=== PATIENT | male | born 1985 | race Caucasian/White ===

== ENCOUNTER 2017-02-15 15:28 | Inpatient (IN) | payer BC, OTHER ==
[~2017-02-15] VITALS: Ht 182.9 cm; Wt 81.6 kg
[~2017-02-15 15:28] MED LIST: [UNRECOGNIZED DRUG - OTHER]
[2017-02-15] MEDS ORDERED: ONDANSETRON ODT 4 MG TAB.RAPDIS SL PRN (16:45)
[2017-02-15] MEDS ORDERED: ONDANSETRON 4 MG/2 ML VIAL IM PRN (16:45)
[2017-02-15] MEDS ORDERED: MAG HYDROX/AL HYDROX/SIMETH 30 ML LIQUID UDC PO PRN (16:45)
[2017-02-15] MEDS ORDERED: CLONIDINE HCL 0.1 MG TABLET PO PRN (16:45)
[2017-02-15] MEDS ORDERED: DICYCLOMINE HCL 20 MG TABLET PO PRN (16:45)
[2017-02-15] MEDS ORDERED: ACETAMINOPHEN 325 MG TABLET PO PRN (16:45)
[2017-02-15] MEDS ORDERED: LOPERAMIDE HCL 2 MG CAPSULE PO PRN ×2 (16:45)
[2017-02-15] MEDS ORDERED: MIRALAX 17 GM POWD.PACK PO PRN (16:45)
[2017-02-15] MEDS ORDERED: MAGNESIUM HYDROXIDE 30 ML LIQUID UDC PO PRN (16:45)
--- NOTE | 2017-02-15 16:50 | NUR ---
PRE ASSESSMENT: PT PRE ASSESSED IN INTAKE. HE DENIES ALLERGIES. HE DENIES SZ HX. BP 140/103 114 97.7 16 99%. HE STATES HE USES 1-2 GM HEROIN IV AND 1 GM COCAINE IV 2-3 X WEEKLY. HE SMOKES POT ON OCCASION AND TOOK 4 MG OF XANAX TODAY AND YESTERDAY ONLY TO ASSIST WITH WITHDRAWAL SYMPTOMS. HE SMOKES 1 PACK OF CIGARETTES. HE HAS MULTIPLE ABSCESSES ON BILAT ARMS AND LEGS. WILL ASSESS ON UNIT.
[2017-02-15] MEDS: NEOMY/BACITRAC/POLYMI OINT 28.35 GM TUBE TOP SCH (17:00)
[2017-02-15 17:01] VITALS: BP 140/103
[2017-02-15 17:24] LABS: BASOPHILS # (AUTO) 0.1 K/uL (0.0-8.0); BASOPHILS % (AUTO) 1.3 % (0.0-2.0); EOSINOPHILS # (AUTO) 0.1 K/uL (0.0-0.7); EOSINOPHILS % (AUTO) 0.8 % (0.0-7.0); HEMATOCRIT 44.5 % (40-50); HEMOGLOBIN 14.9 G/DL (14.0-18.0); LYMPHOCYTES # (AUTO) 0.9 K/UL (0.8-4.8); LYMPHOCYTES % (AUTO) 12.5 % (20.5-51.5); MEAN CORPUSCULAR HEMOGLOBIN 27.3 UUG (27.0-31.0); MEAN CORPUSCULAR HGB CONC 34 g/dL (32.0-37.0); MEAN CORPUSCULAR VOLUME 81.5 FL (82.0-92.0); MONOCYTES # (AUTO) 0.3 K/UL (0.1-1.30); MONOCYTES % (AUTO) 4.7 % (0.0-11.0); NEUTROPHILS # (AUTO) 5.8 K/UL (1.8-8.9); NEUTROPHILS % (AUTO) 80.7 % (38.5-71.5); PLATELET COUNT (AUTO) 275 K/UL (150-450); RED BLOOD CELL COUNT(AUTO) 5.46 MIL/UL (4.7-6.1); WHITE BLOOD COUNT (AUTO) 7.2 K/UL (4.0-11.2)
[2017-02-15 17:31] LABS: ALANINE AMINOTRANSFERASE 14 U/L (16-63); ALKALINE PHOSPHATASE 62 U/L (50-136); ASPARTATE AMINOTRANSFERASE 15 U/L (15-37); BILIRUBIN,TOTAL 0.4 mg/dL (0.2-1.0); CARBON DIOXIDE 24 mmol/L (21-32); CHLORIDE 106 mmol/L (98-107); GLUCOSE 138 mg/dL (74-106); POTASSIUM 3.6 mmol/L (3.5-5.1); TOTAL PROTEIN, SERUM 8.3 g/dL (6.4-8.2); UREA NITROGEN, BLOOD 5 mg/dL (7-18)
[2017-02-15 17:41] LABS: THYROID STIMULATING HORMONE 0.145 mIU/mL (0.358-3.740)
[2017-02-15 17:48] LABS: ETHANOL < 3 MG/DL (0-0)
[2017-02-15] MEDS: METHOCARBAMOL 750 MG TABLET PO PRN (17:50)
[2017-02-15] MEDS: BUPRENORPHINE HCL 2 MG TAB.SUBL SL PRN (17:50)
--- NOTE | 2017-02-15 18:08 | NUR ---
ADMISSION; PT IS A/O X 4 AND AMBULATORY. ADMITTED TO [facility] FOR OPIATE DEPENDENCE. HE USES 1-2 GMS HEROIN IV DAILY X 6 WEEKS. LAST USED 02/12/17. HE USES COCAINE IV 2-3 X WEEKLY X 6 WEEKS. LAST USED 02/11/17. HE SMOKES POT ON OCCASION BUT STATES JUST A JOINT HERE AND THERE. HE ALSO REPORTS HE TOOK 4 MG OF XANAX TODAY AND 4 MG PO YESTERDAY TO HELP HIM MANAGE S/S OF W/D. HE HAS MULTIPLE ABSCESSES ON LEFT ARM AND A FEW ON RIGHT ARM. HE HAS MULTIPLE ABSCESSES ON L LEG AND A COUPLE ON RT. HE HAS AN OPEN ABSCESS ON HIS THUMB. WILL ENDORSE PHOTOS TO BE TAKEN ON SURFACE SHIP USW SUPERVISOR. WOUND CONCRETING SUPERVISOR ASSESSED AND ORDERED ORAL ABT. THERAPY TO MANAGE ABSCESS. EDUCATED PT ON HAND HYGIENE AND IMPORTANCE OF NOT TOUCHING THEM. HE IS PALE AND HIS FACE IS GAUNT.HE APPEARS DISHEVELED AND POORLY KEMPT.DR CISSE ASSESSED PT AND ORDERED PRN SUBUTEX. PRN SUBUTEX GIVEN FOR COWS 12 AND PRN ROBAXIN GIVEN. HE REPORTS MUSCLE ACHES,CHILLS AND ANXIETY.ABT OINTMENT ORDERED BUT NOT AVAILABLE OF YET. PT DENIES HAVING A PCP. HE DENIES MEDICAL HX BUT DOES REPORT A HX OF ANXIETY AND DEPRESSION. PT STATES HE HAS STRUGGLED WITH ADDICTION FOR 10 YEARS AND HAS BEEN IN MULTIPLE TREATMENT CENTERS. HIS LAST TREATMENT CENTER WAS IN FEBRUARY 2016 AT [facility]. HE WAS ALSO AT [facility] IN [place] 3 YRS AGO. HE WAS ORIENTED TO STAFF AN UNIT. ENCOURAGED INCREASED FLUIDS. HE PROVIDED UDS. OFFERED SUPPORT. WILL CONTINUE TO PROVIDE SAFE AND SUPPORTIVE ENVIRONMENT.
[2017-02-15 18:20] LABS: *AMPHETAMINE, URINE NEGATIVE (NEGATIVE); *BARBITURATE, URINE NEGATIVE (NEGATIVE); *CANNABINOID, URINE POSITIVE (NEGATIVE); *COCCAINE, URINE POSITIVE (NEGATIVE); *OPIATE, URINE POSITIVE (NEGATIVE); *PHENCYCLIDINE SCREEN,URINE NEGATIVE (NEGATIVE)
--- NOTE | 2017-02-15 18:20 | NUR ---
COWS 5. COWS WENT FROM 12 TO 5. PRN SUBUTEX EFFECTIVE. PT STATES HE FEELS BETTER.
[2017-02-15] MEDS ORDERED: LORAZEPAM 1 MG TABLET PO PRN ×2 (18:30)
[2017-02-15] MEDS ORDERED: LORAZEPAM 2 MG/1 ML VIAL IM PRN (18:30)
[2017-02-15 20:00] VITALS: BP 109/62
--- NOTE | 2017-02-15 20:00 | NUR ---
Start of Shift Pt is a 31 year old male admitted for Opiate dependence, PRNs Subutex available for withdrawal s/s. Pt reported using Heroin IV 1-2gm/daily and Cocaine IV 1 g 2-3x weekly. NKA, regular diet and full code. Abscessed noted on bilateral and legs d/t heroin use, pictures taken placed in chart. During time of assessment, pt presents with anxiety, reports hot/cold chills throughout body, muscle aches, abdominal cramping, skin flushed, respirations even/unlabored, denies SOB/chest pain, denies SI/HI, bowel sounds active x4, abdomen soft. Safety measures in place, call light within reach, side rails up x2, bed locked and in low position. Will continue to monitor.
[2017-02-15] MEDS: LACTOBACILLUS RHAMNOSUS GG 1 EACH CAPSULE PO SCH (21:22)
[2017-02-15] MEDS: SULFAMETH/TRIMETH 800/160 MG TABLET PO SCH (21:22)
--- NOTE | 2017-02-15 21:51 | NUR ---
PRN Administration Pt reported feeling body/aches, chills throughout body, inability to sit still with abdominal cramping. Bentyl 20mg PRN and Clonidine 0.1mg PRN administered. Safety measures in place. Will continue to monitor.
[2017-02-15] MEDS ORDERED: CEPHALEXIN MONOHYDRATE 500 MG CAPSULE PO SCH (22:00)
--- NOTE | 2017-02-15 22:51 | NUR ---
PRN Reassessment Upon reassessment, pt reports feeling less body aches with minimized abdominal cramping. Needs met, safety measures in place, will continue to monitor.
[2017-02-16] VITALS: BP 123/88
[2017-02-16] MEDS: diphenhydrAMINE 50 MG CAPSULE PO PRN (01:14)
[2017-02-16] MEDS: HYDROXYZINE PAMOATE 25 MG CAPSULE PO PRN ×2 (01:14→20:57)
--- NOTE | 2017-02-16 01:14 | NUR ---
PRN Administration Pt reported anxiety and requested aid to help him sleep. Vistaril 50mg PRN and Benadryl 50mg PRN administered. Safety measure in place, will continue to monitor.
[2017-02-16] MEDS: METHOCARBAMOL 750 MG TABLET PO PRN (02:05)
--- NOTE | 2017-02-16 02:05 | NUR ---
PRN Administration 0205 Pt reported feeling body aches, requested relief. Robaxin 750mg PRN administered. Safety measures in place. will continue to monitor.
--- NOTE | 2017-02-16 03:05 | NUR ---
PRN Reassessment Upon reassessment, pt is sleeping, respirations even/unlabored, no s/s of acute distress. Safety measures in place, will continue to monitor.
[2017-02-16 04:00] VITALS: BP 103/56
[2017-02-16] MEDS: IBUPROFEN 600 MG TABLET PO PRN (04:11)
--- NOTE | 2017-02-16 04:11 | NUR ---
PRN Administration Pt reported pain 6/10 in left hand. Motrin 600mg PRN administered. safety measures in place. Will continue to monitor.
[2017-02-16] MEDS: CEPHALEXIN MONOHYDRATE 500 MG CAPSULE PO SCH ×3 (06:40→18:04)
[2017-02-16] MEDS ORDERED: CEPHALEXIN MONOHYDRATE 500 MG CAPSULE ONE (06:45)
--- NOTE | 2017-02-16 07:00 | NUR ---
End of Shift Pt is a 31 year old male admitted for Opiate dependence, PRNs Subutex available for withdrawal s/s. Pt reported using Heroin IV 1-2gm/daily and Cocaine IV 1 g 2-3x weekly. NKA, regular diet and full code. Abscessed noted on bilateral and legs d/t heroin use, pictures taken placed in chart. PT is on Bactrim, Culturelle and Keflex. During shift, pt presented with anxiety, reported hot/cold chills throughout body, muscle aches, abdominal cramping, skin flushed - scheduled medications administered, along with Clonidine 0.1mg PRN and Bentyl 20mg PRN, effective as reported per pt, COWS 9. Vistaril 50mg PRN, Robaxin 750mg PRN, Motrin 600mg PRN and Benadryl 50mg PRN administered, effective. Pt slept for 5 hours, intake of 800 ml PO and voids x1. Safety measures in place, call light within reach, side rails up x2, bed locked and in low position. Endorsed to day shift nurse.
--- NOTE | 2017-02-16 07:20 | NUR ---
START OF SHIFT NOTE Received report from night nurse, 31 year old male admitted for Opiate dependence, NKA, regular diet and full code. Pt currently not on any taper but PRN's medications available for S/S OF withdrawal. Pt reported using Heroin IV 1-2gm/daily and Cocaine IV 1 g 2-3x weekly. Abscessed noted on bilateral and legs d/t heroin use, Pt is on Bactrim, Culturelle and Keflex. Pt received PRN Benadryl, Bentyl, Clonidine, Vistaril, Robaxin, Motrin effective per night nurse, Last COWS-8, Slept for 5 hours. Upon assessment, Pt is alert awake oriented x4 educated regarding plan of care for the day and medication regimen. Safety measures in place, call light within reach. Will cont to monitor.
[2017-02-16 08:00] VITALS: BP 110/63
[2017-02-16] MEDS: MULTIVITAMINS,THERAPEUTIC TABLET PO SCH (08:44)
[2017-02-16] MEDS: SULFAMETH/TRIMETH 800/160 MG TABLET PO SCH ×2 (08:44→20:56)
[2017-02-16] MEDS: LACTOBACILLUS RHAMNOSUS GG 1 EACH CAPSULE PO SCH ×2 (08:44→20:56)
[2017-02-16] MEDS: NEOMY/BACITRAC/POLYMI OINT 28.35 GM TUBE TOP SCH ×2 (08:45→16:17)
[2017-02-16] MEDS ORDERED: TUBERCULIN,PURIF.PROT.DERIV. 5 TU/0.1 ML TEST ID ONE (09:00)
[2017-02-16] MEDS ORDERED: KETOROLAC TROMETHAMINE 30 MG INJ IM PRN (11:00)
[2017-02-16 12:00] VITALS: BP 111/68
[2017-02-16] MEDS: BUPRENORPHINE HCL 2 MG TAB.SUBL SL PRN (12:26)
--- NOTE | 2017-02-16 12:26 | NUR ---
PRN Subutex 4 mg SL Patient's COWS increased from 4 to 13. Pt presented with restless legs, muscle aches, chills, difficulty sitting still, and hot flashes. Medicated patient with x 1 dose of Subutex 4 mg SL as ordered.
--- NOTE | 2017-02-16 13:06 | NUR ---
REASSESSMENT COWS 6. Less restlessness and less anxiety noted. Subutex 4 mg SL x 1 was effective.
--- NOTE | 2017-02-16 13:10 | NUR ---
WOUND CARE CONSULT: PT PRESENTS WITH MULTIPLE BUMPS, SCABS TO ARMS AND RT ARM OPEN WOUND, PRESENT ON ADMISSION. RECOMMENDATIONS MADE FOR WOUND CARE. DISCUSSED WITH NURSING STAFF. WILL SEE PRPattie JORDAN IN AGREEMENT WITH PLAN OF CARE.
[2017-02-16] MEDS: BACLOFEN 20 MG TABLET PO SCH ×2 (14:23→20:56)
[2017-02-16] MEDS: GABAPENTIN 300 MG CAPSULE PO SCH ×2 (14:23→20:57)
[2017-02-16] MEDS: CLONIDINE HCL 0.1 MG TABLET PO SCH ×2 (14:24→20:56)
[2017-02-16 16:00] VITALS: BP 120/70
--- NOTE | 2017-02-16 16:51 | NUR ---
CARE ENDORSED All pertinent information given and care endorsed to nurse in charge. Vital signs stable Last COWS-5.
--- NOTE | 2017-02-16 16:52 | NUR ---
Pt endorsed SBAR report rcv'd from primary nurse. Pt recent VS are WNL, pt has no complaints at this time. Will continue to monitor pt.
--- NOTE | 2017-02-16 18:56 | NUR ---
End of shift Pt admitted for Opiate dependence. Pt reports NKA, is on a regular diet and full code. Pt is currently on PRN medication to manage his s/s of withdrawal. At 1226 pt had one PRN dose of Subutex which was effective in alleviating his symptoms. Pt is on keflex for the management of his skin infection. Pt noted to have a poor appetite, noted to eat only 50% of breakfast and dinner and refused his lunch. Pt has no complaints at this time. VS have remained stable during the shift, pt last COWS of 5 at 1600 per primary nurse. All needs addressed at this time. Will endorse SBAR to oncoming shift.
--- NOTE | 2017-02-16 19:55 | NUR ---
START OF SHIFT Received report from day shift nurse. Pt is lying in bed resting. He is a 31 yo male admitted to [facility] on 02/15 for opiate dependence. He is A&O x4 and ambulatory. NKA, full code status, and on a regular diet. He has a PMH of anxiety, depression, multiples abscesses, and I&D's for abscesses. On admission he reported using heroin IV 1-2 grams per day and cocaine IV 1 gram per day. No taper ordered at this time. Routine medications ordered for the management of withdrawal symptoms. Pt reports muscle aches, chills, flushing, and tearing eyes. Fall precautions in place. Bed is down with call light in reach. Addendum: 02/17/17 at 0201 by BILL DENT RN Abx ordered for abscesses.
[2017-02-16 20:00] VITALS: BP 143/87
--- NOTE | 2017-02-16 20:30 | NUR ---
PRN Motrin administration Pt reports left hand pain 4/10 r/t abscess. PRN Motrin administered.
--- NOTE | 2017-02-16 20:45 | NUR ---
Nursing Note Pt reports that he feels that the left hand abscess is increasing and size. Dr. Perkins saw pt with orders to continue to monitor, administer abx as ordered, and apply warm compress.
--- NOTE | 2017-02-16 21:00 | NUR ---
PRN Toradol and Vistaril Pt reports anxiety, restlessness, and left hand pain 8/10 r/t abscess. PRN Toradol and Vistaril administered.
--- NOTE | 2017-02-16 22:00 | NUR ---
PRN Toradol and Vistaril reassessment PRN Toradol and Vistaril effective. Pt reports feeling more relaxed. Left hand pain reduced to 2/10.
[2017-02-17] VITALS: BP 115/73
[2017-02-17] MEDS: CEPHALEXIN MONOHYDRATE 500 MG CAPSULE PO SCH ×4 (00:19→17:15)
[2017-02-17] MEDS: diphenhydrAMINE 50 MG CAPSULE PO PRN (00:19)
[2017-02-17 04:00] VITALS: BP 92/49
--- NOTE | 2017-02-17 07:12 | NUR ---
END OF SHIFT Report provided to day shift nurse. Pt is lying in bed resting. He is a 31 yo male admitted to [facility] on 02/15 for opiate dependence. He is A&O x4 and ambulatory. NKA, full code status, and on a regular diet. He has a PMH of anxiety, depression, multiples abscesses, and I&D's for abscesses. He is ordered abx for treatment of abscesses. MD assessed pt's abscesses to the left hand with orders for warm compress until re-evaluation. On admission he reported using heroin IV 1-2 grams per day and cocaine IV 1 gram per day. Medications ordered for s/s of withdrawal. Last COWS 4. PRN Toradol, Vistaril, and Benadryl administered. He drank 855 and slept 8 hours. Fall precautions in place. Bed is down with call light in reach.
--- NOTE | 2017-02-17 07:37 | NUR ---
START OF SHIFT NOTE Received report from night nurse, 31 year old male admitted for Opiate dependence, NKA, regular diet and full code. Pt currently not on any taper but PRN's medications available for S/S OF withdrawal. Pt reported using Heroin IV 1-2gm/daily and Cocaine IV 1 g 2-3x weekly. Abscessed noted on bilateral upper extremities and legs d/t heroin use, Pt is on Bactrim, Culturelle and Keflex. Per endorsement pt's abscesses to the left hand with orders for warm compress until re-evaluation. Pt received PRN Benadryl, Vistaril, Toradol effective per night nurse, Last COWS-4 , Slept for 8 hours. Upon assessment, Pt is alert awake oriented x4 educated regarding plan of care for the day and medication regimen. Safety measures in place, call light within reach. Will cont to monitor.
[2017-02-17 08:00] VITALS: BP 102/66
[2017-02-17] MEDS: MULTIVITAMINS,THERAPEUTIC TABLET PO SCH (08:45)
[2017-02-17] MEDS: SULFAMETH/TRIMETH 800/160 MG TABLET PO SCH ×2 (08:45→20:27)
[2017-02-17] MEDS: LACTOBACILLUS RHAMNOSUS GG 1 EACH CAPSULE PO SCH ×2 (08:45→20:28)
[2017-02-17] MEDS: BACLOFEN 20 MG TABLET PO SCH ×3 (08:45→20:28)
[2017-02-17] MEDS: GABAPENTIN 300 MG CAPSULE PO SCH (08:45)
[2017-02-17] MEDS: NEOMY/BACITRAC/POLYMI OINT 28.35 GM TUBE TOP SCH ×2 (08:46→16:05)
[2017-02-17] MEDS: CLONIDINE HCL 0.1 MG TABLET PO SCH ×3 (08:46→20:27)
[2017-02-17 12:00] VITALS: BP 119/73
[2017-02-17] MEDS ORDERED: CEPH500C2 PO (12:30)
[2017-02-17] MEDS ORDERED: DICY20TA28 PO (12:30)
[2017-02-17] MEDS ORDERED: CLON0.1T14 PO (12:30)
[2017-02-17] MEDS ORDERED: LACT1CAP57 PO (12:30)
[2017-02-17] MEDS ORDERED: GABA-536 PO (12:30)
[2017-02-17] MEDS ORDERED: IBUP-1955 PO (12:30)
[2017-02-17] MEDS ORDERED: BACL20TA PO (12:30)
[2017-02-17] MEDS ORDERED: SULF1TAB3 PO (12:30)
[2017-02-17] MEDS ORDERED: HYDR-3895 PO (12:30)
[2017-02-17] MEDS ORDERED: DIPH50CA37 PO (12:30)
[2017-02-17] MEDS: GABAPENTIN 400 MG CAPSULE PO SCH ×2 (14:01→20:28)
[2017-02-17] MEDS: DICYCLOMINE HCL 20 MG TABLET PO SCH ×2 (14:01→20:27)
--- NOTE | 2017-02-17 14:16 | NUR ---
Clinician encouraged client to attend group. Client responded "No, I'm ok thanks".
[2017-02-17 14:53] LABS: CREATININE 1.2 mg/dL (0.6-1.3); MAGNESIUM 1.9 mg/dL (1.8-2.4); POTASSIUM 3.9 mmol/L (3.5-5.1)
[2017-02-17 15:29] LABS: THYROID STIMULATING HORMONE 0.446 mIU/mL (0.358-3.740)
[2017-02-17 16:00] VITALS: BP 110/70
[2017-02-17 17:38] LABS: *AMPHETAMINE, URINE NEGATIVE (NEGATIVE); *BARBITURATE, URINE NEGATIVE (NEGATIVE); *CANNABINOID, URINE POSITIVE (NEGATIVE); *COCCAINE, URINE POSITIVE (NEGATIVE); *OPIATE, URINE POSITIVE (NEGATIVE); *PHENCYCLIDINE SCREEN,URINE NEGATIVE (NEGATIVE)
--- NOTE | 2017-02-17 19:12 | NUR ---
END OF SHIFT NOTE Gave report to night nurse, 31 year old male admitted for Opiate dependence, NKA, regular diet and full code. Pt currently not on any taper but PRN's medications available for S/S OF withdrawal. Pt reported using Heroin IV 1-2gm/daily and Cocaine IV 1 g 2-3x weekly. Abscessed noted on bilateral upper extremities and legs d/t heroin use and currently Pt is on Keflex/Bactrim for the management of his skin infection. Patient remained compliant with treatment plan. Patient remained compliant with treatment plan. Last COWS-3. Encouraged PO fluids as tolerated. Pt scheduled for discharge in AM urine drug screen completed and pictures taken and placed in the chart. Safety measures in place, Call light within reach. Pt endorsed to night nurse in stable condition.
--- NOTE | 2017-02-17 19:45 | NUR ---
START OF SHIFT Received report from day shift nurse. Pt is lying in bed watching TV. He is a 31 yo male admitted to [facility] on 02/15 for opiate dependence. He is A&O x4 and ambulatory. NKA, full code status, and on a regular diet. He has a PMH of anxiety, depression, multiples abscesses, and I&D's for abscesses. On admission he reported using heroin IV 1-2 grams per day and cocaine IV 1 gram per day. Routine medications ordered for the management of withdrawal symptoms. He is scheduled for discharge tomorrow. Pt reports chills, nasal stuffiness, and mild left hand pain r/t abscess. Bactrim and Keflex ordered for abscess treatment. He has been compliant with treatment. Fall precautions in place. Bed is down with call light in reach.
[2017-02-17 20:00] VITALS: BP 117/78
[2017-02-17] MEDS: IBUPROFEN 600 MG TABLET PO PRN (20:28)
--- NOTE | 2017-02-17 21:30 | NUR ---
PRN Motrin reassessment PRN Motrin effective. Pt reports left hand pain is relieved.
[2017-02-18] VITALS: BP 112/69
[2017-02-18] MEDS: CEPHALEXIN MONOHYDRATE 500 MG CAPSULE PO SCH ×2 (00:07→06:51)
--- NOTE | 2017-02-18 04:00 | NUR ---
0400 Vitals refused. COWS deferred Pt refused to be woken for 0400 vitals signs. Respirations even and unlabored. COWS ordered Q4HWA. Safety measures in place.
--- NOTE | 2017-02-18 07:26 | NUR ---
END OF SHIFT Report provided to day shift nurse. Pt is lying in bed resting. He is a 31 yo male admitted to [facility] on 02/15 for opiate dependence and is scheduled for discharge today. He is A&O x4 and ambulatory. NKA, full code status, and on a regular diet. He has a PMH of anxiety, depression, multiples abscesses, and I&D's for abscesses. On admission he reported using heroin IV 1-2 grams per day and cocaine IV 1 gram per day. Routine medications ordered for the management of withdrawal symptoms. Abx ordered for abscess treatment. PRN Motrin administered. Last COWS 3. He drank 2033 and slept for 8 hours. Fall precautions in place. Bed is down with call light in reach.
--- NOTE | 2017-02-18 07:27 | NUR ---
Start of shift note Pt was admitted for opiate dependence and cocaine abuse. Pt has a PMHx of anxiety, depression and multiple I&D's prior to admission. Pt was on PRN medications to manage his s/s of withdrawal with success. Pt states that he feels ready for discharge. P thas no complaints at this time. Pt is scheduled to discharge today. Will continue to monitor pt. All needs addressed at this time.
[2017-02-18 08:00] VITALS: BP 117/87
[2017-02-18 08:58] VITALS: BP 117/87
[2017-02-18] MEDS: GABAPENTIN 400 MG CAPSULE PO SCH (08:58)
[2017-02-18] MEDS: LACTOBACILLUS RHAMNOSUS GG 1 EACH CAPSULE PO SCH (08:58)
[2017-02-18] MEDS: CLONIDINE HCL 0.1 MG TABLET PO SCH (08:58)
[2017-02-18] MEDS: DICYCLOMINE HCL 20 MG TABLET PO SCH (08:58)
[2017-02-18] MEDS: SULFAMETH/TRIMETH 800/160 MG TABLET PO SCH (08:58)
[2017-02-18] MEDS: BACLOFEN 20 MG TABLET PO SCH (08:58)
[2017-02-18] MEDS: MULTIVITAMINS,THERAPEUTIC TABLET PO SCH (08:58)
[2017-02-18] MEDS: NEOMY/BACITRAC/POLYMI OINT 28.35 GM TUBE TOP SCH (08:59)
--- NOTE | 2017-02-18 09:40 | NUR ---
Discharge note Pt was admitted for opiate dependence and cocaine abuse. Pt has a recent COWS of 2, VS are WNL, LBM 02/18/17. Pt states that he feels ready for discharge. Verbalized understanding of the discharge instructions. Pt denies any SI/HI. Pt prescriptions, discharge instructions, and all belongings returned to pt. 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
== END 2017-02-18 09:40 | disposition home or self-care (01) | DRG 895 ==
LOC: SRC 15:38
PROVIDERS: ADMIT Internal Medicine; ATTEND Internal Medicine
PROC: HZ2ZZZZ Detoxification Services for Substance Abuse Treatment (ICD-10-PCS; principal; 2017-02-15)
PROC: HZ31ZZZ Individual Counseling for Substance Abuse Treatment, Behavioral (ICD-10-PCS; 2017-02-17)
DX: F11.23 Opioid dependence with withdrawal (principal); L02.511 Cutaneous abscess of right hand; F14.10 Cocaine abuse, uncomplicated; F12.10 Cannabis abuse, uncomplicated; Z81.8 Family history of other mental and behavioral disorders; Z81.4 Family history of other substance abuse and dependence; S41.132S Puncture wound without foreign body of left upper arm, sequela; S41.131S Puncture wound without foreign body of right upper arm, sequela; L08.9 Local infection of the skin and subcutaneous tissue, unspecified; X78.8XXS Intentional self-harm by other sharp object, sequela; F32.9 Major depressive disorder, single episode, unspecified; F17.210 Nicotine dependence, cigarettes, uncomplicated; E07.81 Sick-euthyroid syndrome; E05.80 Other thyrotoxicosis without thyrotoxic crisis or storm
CPT/HCPCS: 36415; 80307; 80346; 80349; 80353; 80361; 82306; 83735; 84443; 85025; 86580; G6040-TC; J1885; Q0163